=== PATIENT | female | born 1990 | race Caucasian/White ===

== ENCOUNTER 2020-12-11 13:32 | Emergency (ER) | payer SELFPAY ==
[~2020-12-11] VITALS: Ht 165.1 cm; Wt 65.8 kg
--- NOTE | 2020-12-11 13:40 | NUR ---
THE PATIENT IS [facility] 76 FROM [facility] FOR AMS POSS ETOH, BS=42MG/DL PHYSICIANS ASSISTANT 150ML OF D10 GIVEN IN THE FIELD, NEW JS=987PP/DL PER EMS REPORT. THE PATIENT IS ALERT AND ORIENTED TO SELF. ABLE TO COMMUNICATE VERBALLY. DENIES PAIN. IN ROOM AIR AND DENIES SOB. RESPIRATION REGULAR AND UNLABORED. THE PATIENT IS ATTACHED TO THE MONITOR. ATTACHED TO THE MONITOR. WILL CONTINUE TO MONITOR THE PATIENT.
[2020-12-11 13:51] LABS: BASOPHILS % (AUTO) 0.4 % (0.0-2.0); EOSINOPHILS % (AUTO) 0.2 % (0.0-6.0); HEMATOCRIT 38 % (33-45); LYMPHOCYTES # (AUTO) 0.7 K/uL (0.8-4.8); LYMPHOCYTES % (AUTO) 10.5 % (20.0-44.0); MEAN CORPUSCULAR HGB CONC 32 g/dl (31.0-36.0); MEAN CORPUSCULAR VOLUME 92 fL (82-100); MONOCYTES # (AUTO) 0.3 K/uL (0.1-1.30); MONOCYTES % (AUTO) 3.8 % (2.0-12.0); NEUTROPHILS # (AUTO) 5.8 K/uL (1.8-8.9); NEUTROPHILS % (AUTO) 85.1 % (43.0-81.0); PLATELET COUNT (AUTO) 272 K/uL (150-450); RED BLOOD CELL COUNT(AUTO) 4.12 MIL/uL (4.0-5.2); WHITE BLOOD COUNT (AUTO) 6.8 K/uL (4.3-11.0)
--- NOTE | 2020-12-11 13:59 | NUR ---
THE PATIENT STATED THAT SHE DOES NOT FEELING URINATING AT THIS TIME.
[2020-12-11 14:00] LABS: CREATININE 0.6 mg/dL (0.6-1.3)
[2020-12-11 14:10] LABS: ALBUMIN 3.5 g/dL (3.4-5.0); BILIRUBIN,DIRECT 0.1 mg/dL (0.0-0.2); BILIRUBIN,TOTAL 0.3 mg/dL (0.2-1.0); TOTAL PROTEIN, SERUM 6.5 g/dL (6.4-8.2)
[2020-12-11] MEDS ORDERED: IV D5/ 0.9% NACL 1,000 ML IV ONE (14:30)
--- NOTE | 2020-12-11 17:02 | NUR ---
urine collected and sent to the lab
[2020-12-11 17:04] LABS: BILIRUBIN,URINE NEGATIVE (NEGATIVE); COLOR,URINE YELLOW (YELLOW); LEUKOCYTE ESTERASE ,URINE SMALL (NEGATIVE); NITRITE, URINE NEGATIVE (NEGATIVE); PH,URINE 5.5 (5.0-8.0); PROTEIN,URINE TRACE mg/dl (NEGATIVE); UGLUCOSE NEGATIVE (NEGATIVE); UROBILINOGEN,URINE 0.2 EU/dL (0.2)
[2020-12-11 17:21] LABS: BACTERIA,URINE 1+ /HPF (None Seen); SQUAMOUS EPITHELIAL CELL,UR Moderate /HPF (None Seen)
--- NOTE | 2020-12-11 17:28 | NUR ---
PT IS AWAKE, ALERT. ORIENTED. VERBALIZED THAT SHE IS READY TO GO HOME. PT'S AMBULATION TESTED AND ON STEADY GAIT. MADE AWRE
--- NOTE | 2020-12-11 18:35 | NUR ---
PT IS MEDICALLY CLEARED FOR DISCHARGE. PT IS IN STABLE CONDITION. NAD NOTED. PT IS RELEASED TO HER FRIEND, NAMRATA. PT WALKED TO THE CAR ON STEADY GAIT
[2020-12-11 18:58] VITALS: BP 112/67
== END 2020-12-11 18:58 | disposition home or self-care (01) ==
LOC: ER 13:39
DX: F10.129 Alcohol abuse with intoxication, unspecified (principal); R41.82 Altered mental status, unspecified; Y90.8 Blood alcohol level of 240 mg/100 ml or more
CPT/HCPCS: 36415; 80048; 80076; 80143; 80307; 80320; 81001; 82962 ×2; 83735; 84703; 85025; 87086; 96360; 96361; 99283; J3490; J7042; G0480